=== PATIENT | female | born 1930 | race Caucasian/White ===

== ENCOUNTER → 2016-12-07 | Outpatient (CLI) | payer OTHER, MEDICARE ==
[~2016-12-07] MED LIST: AMLO5TAB2 PO; EFFSR75 PO; FURO-85 PO; PRLSR20 PO; TRAM-10 PO; VENL75CA73 PO
[2016-12-07 06:43] LABS: MANUAL MICROSCOPIC REQUIRED? NO; REVIEW REQ? NO; URINE APPEARANCE TURBID (CLEAR); URINE BILIRUBIN NEG (NEG); URINE COLOR YELLOW; URINE NITRITE NEG (NEG); URINE SPECIFIC GRAVITY 1.014 (1.000-1.030); UROBILINOGEN NEG (NEG); ZZURINE CULT IF INDIC CATH YES
== END ==
LOC: C.LABUPNIT 06:43
PROVIDERS: ATTEND Family Medicine
DX: R41.0 Disorientation, unspecified (principal)

== ENCOUNTER → 2016-12-11 | Outpatient (CLI) | payer OTHER, MEDICARE ==
[2016-12-11 09:15] LABS: BLOOD UREA NITROGEN 12 mg/dl (7-18); BUN/CREATININE RATIO 15.7 (10-20); CALCIUM 8.9 mg/dl (8.5-10.1); CARBON DIOXIDE 25 mmol/L (21-32); CHLORIDE 105 mmol/L (98-107); CREATININE 0.77 mg/dl (0.60-1.20); GLUCOSE 75 mg/dl (70-99); POTASSIUM 4.4 mmol/L (3.5-5.1); SODIUM 139 mmol/L (136-145)
[2016-12-11 09:25] LABS: THYROID STIMULATING HORMONE 0.378 uIu/ml (0.300-4.500)
--- NOTE | 2017-01-06 14:12 | CODING QUERY MEDICAL NECESSITY ---
SUPPORTING DIAGNOSIS NEEDED A supporting diagnosis is required for the test/procedure performed on this patient in order for us to be reimbursed by the patient's insurance. Please provide a supporting diagnosis for the following test/procedure listed below next to the test name along with your signature. *If there is no additional diagnosis for this patient that would support the following test/procedure please document that below next to the test/procedure. Test(s)/Procedure(s) that require a supporting diagnosis: * VITAMIN B-12 LEVEL DIAGNOSIS: * DOS: 12/11/16 Provider Signature: Date: Thank you Polly Jenkins [facility] Information Management Once completed, please kindly fax back to [phone] For questions please call [phone]
== END ==
LOC: C.LABUPNIT 08:49
PROVIDERS: ATTEND Family Medicine
DX: M62.81 Muscle weakness (generalized) (principal); D64.9 Anemia, unspecified; I10 Essential (primary) hypertension; E53.8 Deficiency of other specified B group vitamins

== ENCOUNTER → 2016-12-22 | Outpatient (CLI) | payer OTHER, MEDICARE ==
[2016-12-22 02:44] LABS: URINE APPEARANCE CLEAR (CLEAR); URINE BILIRUBIN NEG (NEG); URINE COLOR YELLOW; URINE EPITHELIAL CELL AUTO 0-5 /lpf (0-5); URINE NITRITE NEG (NEG); URINE SPECIFIC GRAVITY 1.001 (1.000-1.030); UROBILINOGEN NEG (NEG)
[2016-12-22 02:55] LABS: MANUAL MICROSCOPIC REQUIRED? NO; REVIEW REQ? NO
== END ==
LOC: C.LABUPNIT 12:07
PROVIDERS: ATTEND Family Medicine
DX: N39.0 Urinary tract infection, site not specified (principal)

== ENCOUNTER → 2016-12-23 | Outpatient (CLI) | payer OTHER, MEDICARE ==
[2016-12-23 09:35] LABS: BASO % 0.6 %; BASO ABS # 0.03 K/uL (0-0.2); COMPLETE YES; EOS % 0.6 %; IG% 0.4 %; LYMPH ABS # 0.92 K/uL (1.2-3.4); MEAN CELL VOLUME 90.9 fL (80-100); MEAN CORPUSCULAR HEMOGLOBIN 30.1 pg (25-34); MEAN CORPUSCULAR HGB CONC 33.1 g/dl (32-36); MONO % 10.8 %; NEUT % 68.6 %; PLATELET COUNT 166 K/uL (130-400); RED BLOOD COUNT 3.52 M/uL (4.2-5.4); WHITE BLOOD COUNT 4.83 K/uL (4.8-10.8)
[2016-12-23 11:25] LABS: ALT/SGPT 13 U/L (12-78); AST/SGOT 13 U/L (15-37); BLOOD UREA NITROGEN 10 mg/dl (7-18); BUN/CREATININE RATIO 16.4 (10-20); CARBON DIOXIDE 28 mmol/L (21-32); CHLORIDE 102 mmol/L (98-107); CREATININE 0.62 mg/dl (0.60-1.20); GLUCOSE 77 mg/dl (70-99); POTASSIUM 3.9 mmol/L (3.5-5.1); SODIUM 138 mmol/L (136-145)
[2016-12-23 11:26] LABS: ALB/GLOB RATIO 0.8 (0.9-2); ALKALINE PHOSPHATASE 80 U/L (45-117)
--- NOTE | 2016-12-27 10:26 | CODING QUERY NO DIAGNOSIS ---
TREATMENT RENDERED WITHOUT A DIAGNOSIS : 1930 To promote full compliance with coding requirements relating to patient care, physician participation is requested in all cases of [place] man uncertainty. Please assist us with providing a diagnosis/symptom for the test(s) below: A diagnosis/symptom was not documented on your Order. A valid diagnosis/symptom is required to bill all insurances. Please remember that we are unable to code a diagnosis of rule out, probable, possible, questionable, or suspected. Tests that require a diagnosis: DOS: 12/23/16 * CHEMISTRY + LIVER SD DIAGNOSIS: * CBC WITH AUTO DIFFER DIAGNOSIS: * VITAMIN B12 DIAGNOSIS: Provider Signature: Date: Thank you Sona Rivera [facility] Information Management Once completed, please kindly fax back to [phone] For questions please call [phone]
--- NOTE | 2017-01-29 10:16 | CODING QUERY MEDICAL NECESSITY ---
SUPPORTING DIAGNOSIS NEEDED A supporting diagnosis is required for the test/procedure performed on this patient in order for us to be reimbursed by the patient's insurance. Please provide a supporting diagnosis for the following test/procedure listed below next to the test name along with your signature. *If there is no additional diagnosis for this patient that would support the following test/procedure please document that below next to the test/procedure. Test(s)/Procedure(s) that require a supporting diagnosis: * VITAMIN B-12 LEVEL DIAGNOSIS: * DOS: 12/23/16 Provider Signature: Date: Thank you Polly Jenkins [facility] Information Management Once completed, please kindly fax back to [phone] For questions please call [phone]
== END ==
LOC: C.LABUPNIT 09:06
PROVIDERS: ATTEND Family Medicine
DX: D64.9 Anemia, unspecified (principal); I10 Essential (primary) hypertension

== ENCOUNTER → 2017-02-02 | Outpatient (CLI) | payer OTHER, MEDICARE | LOC: C.LABUPNIT 15:30 | PROVIDERS: ATTEND Family Medicine | DX: J10.1 Influenza due to other identified influenza virus with other respiratory manifestations (principal) ==

== ENCOUNTER → 2017-02-11 | Outpatient (CLI) | payer OTHER, MEDICARE ==
[2017-02-11 10:02] LABS: BASO % 0.4 %; BASO ABS # 0.02 K/uL (0-0.2); COMPLETE YES; EOS % 1.7 %; HEMATOCRIT 32.6 % (37-47); IG% 0.4 %; LYMPH % 21.2 %; LYMPH ABS # 1.09 K/uL (1.2-3.4); MEAN CELL VOLUME 91.6 fL (80-100); MEAN CORPUSCULAR HEMOGLOBIN 30.6 pg (25-34); MEAN CORPUSCULAR HGB CONC 33.4 g/dl (32-36); MEAN PLATELET VOLUME 10.4 fL (7.4-10.4); MONO % 9.9 %; NEUT % 66.4 %; PLATELET COUNT 152 K/uL (130-400); RED BLOOD COUNT 3.56 M/uL (4.2-5.4); WHITE BLOOD COUNT 5.15 K/uL (4.8-10.8)
[2017-02-11 10:39] LABS: ALT/SGPT 11 U/L (12-78); AST/SGOT 11 U/L (15-37); BLOOD UREA NITROGEN 24 mg/dl (7-18); BUN/CREATININE RATIO 29.7 (10-20); CALCIUM 9.1 mg/dl (8.5-10.1); CARBON DIOXIDE 27 mmol/L (21-32); CHLORIDE 108 mmol/L (98-107); GLUCOSE 93 mg/dl (70-99); POTASSIUM 4.4 mmol/L (3.5-5.1); SODIUM 142 mmol/L (136-145)
[2017-02-11 10:41] LABS: ALB/GLOB RATIO 0.7 (0.9-2); ALKALINE PHOSPHATASE 74 U/L (45-117)
== END ==
LOC: C.LABUPNIT 09:45
PROVIDERS: ATTEND Family Medicine
DX: I10 Essential (primary) hypertension (principal); D64.9 Anemia, unspecified

== ENCOUNTER → 2017-04-14 | Outpatient (CLI) | payer OTHER, MEDICARE ==
[2017-04-14 10:09] LABS: HEMATOCRIT 32.1 % (37-47); MEAN CELL VOLUME 95.3 fL (80-100); MEAN CORPUSCULAR HEMOGLOBIN 30.9 pg (25-34); MEAN CORPUSCULAR HGB CONC 32.4 g/dl (32-36); MEAN PLATELET VOLUME 10.2 fL (7.4-10.4); PLATELET COUNT 139 K/uL (130-400); RED BLOOD COUNT 3.37 M/uL (4.2-5.4); WHITE BLOOD COUNT 4.45 K/uL (4.8-10.8)
== END ==
LOC: C.LABUPNIT 09:23
PROVIDERS: ATTEND Nurse Practitioner Family
DX: D64.9 Anemia, unspecified (principal)

== ENCOUNTER → 2017-07-10 | Outpatient (CLI) | payer OTHER, MEDICARE | END | disposition home or self-care (01) | LOC: C.LABUPNIT 08:50 | PROVIDERS: ATTEND Nurse Practitioner Family | DX: M81.0 Age-related osteoporosis without current pathological fracture (principal) ==

== ENCOUNTER → 2017-07-15 | Outpatient (CLI) | payer OTHER, MEDICARE ==
[2017-07-15 09:24] LABS: HEMATOCRIT 31.2 % (37-47); MEAN CORPUSCULAR HEMOGLOBIN 30.4 pg (25-34); MEAN CORPUSCULAR HGB CONC 32.4 g/dl (32-36); MEAN PLATELET VOLUME 10.1 fL (7.4-10.4); PLATELET COUNT 150 K/uL (130-400); RED BLOOD COUNT 3.32 M/uL (4.2-5.4); WHITE BLOOD COUNT 4.57 K/uL (4.8-10.8)
== END | disposition home or self-care (01) ==
LOC: C.LABUPNIT 08:48
PROVIDERS: ATTEND Nurse Practitioner Family
DX: I10 Essential (primary) hypertension (principal)

== ENCOUNTER → 2017-09-08 | Outpatient (CLI) | payer OTHER, MEDICARE ==
[2017-09-08 10:20] LABS: HEMATOCRIT 31.5 % (37-47); MEAN CORPUSCULAR HEMOGLOBIN 30.8 pg (25-34); MEAN CORPUSCULAR HGB CONC 32.1 g/dl (32-36); MEAN PLATELET VOLUME 9.9 fL (7.4-10.4); PLATELET COUNT 162 K/uL (130-400); RED BLOOD COUNT 3.28 M/uL (4.2-5.4); WHITE BLOOD COUNT 4.31 K/uL (4.8-10.8)
[2017-09-08 10:53] LABS: BLOOD UREA NITROGEN 18 mg/dl (7-18); BUN/CREATININE RATIO 29.5 (10-20); CALCIUM 9.2 mg/dl (8.5-10.1); CARBON DIOXIDE 27 mmol/L (21-32); CHLORIDE 105 mmol/L (98-107); CREATININE 0.61 mg/dl (0.60-1.20); GLUCOSE 79 mg/dl (70-99); POTASSIUM 4.5 mmol/L (3.5-5.1); SODIUM 141 mmol/L (136-145)
== END ==
LOC: C.LABUPNIT 09:14
PROVIDERS: ATTEND Nurse Practitioner Family
DX: D64.9 Anemia, unspecified (principal)

== ENCOUNTER → 2017-09-25 | Outpatient (CLI) | payer OTHER, MEDICARE | LOC: C.LABUPNIT 10:09 | PROVIDERS: ATTEND Nurse Practitioner Family | DX: R11.2 Nausea with vomiting, unspecified (principal) ==

== ENCOUNTER → 2017-09-26 | Outpatient (CLI) | payer OTHER, MEDICARE ==
[2017-09-27 15:32] LABS: URINE APPEARANCE TURBID (CLEAR); URINE BILIRUBIN NEG (NEG); URINE COLOR YELLOW; URINE EPITHELIAL CELL AUTO >30 /lpf (0-5); URINE NITRITE POS (NEG); URINE SPECIFIC GRAVITY 1.016 (1.000-1.030); UROBILINOGEN POS (NEG)
[2017-09-27 15:35] LABS: MANUAL MICROSCOPIC REQUIRED? NO; REVIEW REQ? YES
[2017-09-27 15:41] LABS: SULFASALICYLIC ACID POS (NEG)
== END ==
LOC: C.LABUPNIT 10:13
PROVIDERS: ATTEND Family Medicine
DX: N39.0 Urinary tract infection, site not specified (principal)

== ENCOUNTER → 2017-10-14 | Outpatient (CLI) | payer OTHER, MEDICARE ==
[2017-10-14 09:13] LABS: BASO % 0.3 %; BASO ABS # 0.02 K/uL (0-0.2); COMPLETE YES; EOS % 3.6 %; HEMATOCRIT 32.5 % (37-47); IG% 0.5 %; LYMPH % 19.8 %; LYMPH ABS # 1.14 K/uL (1.2-3.4); MEAN CELL VOLUME 93.1 fL (80-100); MEAN CORPUSCULAR HEMOGLOBIN 30.9 pg (25-34); MEAN CORPUSCULAR HGB CONC 33.2 g/dl (32-36); MONO % 13.4 %; NEUT % 62.4 %; PLATELET COUNT 160 K/uL (130-400); RED BLOOD COUNT 3.49 M/uL (4.2-5.4); WHITE BLOOD COUNT 5.76 K/uL (4.8-10.8)
== END ==
LOC: C.LABUPNIT 08:58
PROVIDERS: ATTEND Nurse Practitioner Family
DX: I10 Essential (primary) hypertension (principal)

== ENCOUNTER → 2017-10-17 | Outpatient (CLI) | payer OTHER, MEDICARE | LOC: C.LABUPNIT 11:30 | PROVIDERS: ATTEND Nurse Practitioner Family | DX: N39.0 Urinary tract infection, site not specified (principal) ==

== ENCOUNTER → 2017-11-10 | Outpatient (CLI) | payer OTHER, MEDICARE ==
[2017-11-10 09:06] LABS: HEMOGLOBIN 10.2 g/dL (12.0-16.0); MEAN CELL VOLUME 92.8 fL (80-100); MEAN CORPUSCULAR HEMOGLOBIN 29.6 pg (25-34); MEAN CORPUSCULAR HGB CONC 31.9 g/dl (32-36); MEAN PLATELET VOLUME 10.3 fL (7.4-10.4); PLATELET COUNT 164 K/uL (130-400); RED CELL DISTRIBUTION WIDTH CV 13.4 % (11.5-14.5); RED CELL DISTRIBUTION WIDTH SD 45.1 fL (36.4-46.3); WHITE BLOOD COUNT 4.57 K/uL (4.8-10.8)
[2017-11-10 09:23] LABS: ALBUMIN 2.5 gm/dl (3.4-5.0); ALT/SGPT 13 U/L (12-78); BLOOD UREA NITROGEN 16 mg/dl (7-18); CALCIUM 9.1 mg/dl (8.5-10.1); CARBON DIOXIDE 27 mmol/L (21-32); GLUCOSE 77 mg/dl (70-99); POTASSIUM 4.2 mmol/L (3.5-5.1); SODIUM 137 mmol/L (136-145)
[2017-11-10 09:34] LABS: ALKALINE PHOSPHATASE 85 U/L (45-117); AST/SGOT 15 U/L (15-37); TOTAL PROTEIN 5.8 gm/dl (6.4-8.2)
== END ==
LOC: C.LABUPNIT 07:49
PROVIDERS: ATTEND Nurse Practitioner Family
DX: D64.9 Anemia, unspecified (principal); I10 Essential (primary) hypertension

== ENCOUNTER → 2018-01-22 | Outpatient (CLI) | payer OTHER, MEDICARE ==
[2018-01-22 09:50] LABS: HEMATOCRIT 31.4 % (37-47); HEMOGLOBIN 10.4 g/dL (12.0-16.0); MEAN CELL VOLUME 93.5 fL (80-100); MEAN CORPUSCULAR HGB CONC 33.1 g/dl (32-36); MEAN PLATELET VOLUME 10.1 fL (7.4-10.4); PLATELET COUNT 137 K/uL (130-400); RED CELL DISTRIBUTION WIDTH CV 13.3 % (11.5-14.5); RED CELL DISTRIBUTION WIDTH SD 45.2 fL (36.4-46.3)
[2018-01-22 10:15] LABS: ALBUMIN 2.5 gm/dl (3.4-5.0); ALT/SGPT 11 U/L (12-78); BLOOD UREA NITROGEN 13 mg/dl (7-18); CALCIUM 8.6 mg/dl (8.5-10.1); CARBON DIOXIDE 27 mmol/L (21-32); GLUCOSE 77 mg/dl (70-99); POTASSIUM 3.7 mmol/L (3.5-5.1); SODIUM 138 mmol/L (136-145)
[2018-01-22 10:25] LABS: ALKALINE PHOSPHATASE 90 U/L (45-117); AST/SGOT 12 U/L (15-37); TOTAL PROTEIN 5.8 gm/dl (6.4-8.2)
[2018-01-22 12:09] LABS: HEMOGLOBIN A1C 4.9 % (4.5-5.6)
== END ==
LOC: C.LABUPBEA 09:17
PROVIDERS: ATTEND Nurse Practitioner Family
DX: Z00.00 Encounter for general adult medical examination without abnormal findings (principal); D64.9 Anemia, unspecified; M81.0 Age-related osteoporosis without current pathological fracture

== ENCOUNTER → 2018-02-02 | Outpatient (CLI) | payer OTHER, MEDICARE ==
[2018-02-02 09:36] LABS: HEMOGLOBIN A1C 4.9 % (4.5-5.6)
== END ==
LOC: C.LABUPBEA 08:33
PROVIDERS: ATTEND Nurse Practitioner Family
DX: H35.30 Unspecified macular degeneration (principal)

== ENCOUNTER → 2018-02-03 | Outpatient (CLI) | payer OTHER, MEDICARE ==
[2018-02-03 08:49] LABS: HEMATOCRIT 32.1 % (37-47); HEMOGLOBIN 10.7 g/dL (12.0-16.0)
== END ==
LOC: C.LABUPBEA 08:19
PROVIDERS: ATTEND Nurse Practitioner Family
DX: D64.9 Anemia, unspecified (principal)

== ENCOUNTER → 2018-02-09 | Outpatient (CLI) | payer OTHER, MEDICARE ==
[2018-02-09 10:01] LABS: BASO % 0.8 %; BASO ABS # 0.04 K/uL (0-0.2); EOS % 3.8 %; EOS ABS # 0.18 K/uL (0-0.5); HEMATOCRIT 32.9 % (37-47); HEMOGLOBIN 10.9 g/dL (12.0-16.0); LYMPH % 26.5 %; LYMPH ABS # 1.25 K/uL (1.2-3.4); MEAN CELL VOLUME 92.7 fL (80-100); MEAN CORPUSCULAR HEMOGLOBIN 30.7 pg (25-34); MEAN CORPUSCULAR HGB CONC 33.1 g/dl (32-36); MEAN PLATELET VOLUME 9.8 fL (7.4-10.4); MONO % 12.5 %; MONO ABS # 0.59 K/uL (0.11-0.59); NEUT % 56.4 %; NEUT ABS # 2.66 K/uL (1.4-6.5); PLATELET COUNT 180 K/uL (130-400); RED CELL DISTRIBUTION WIDTH CV 13.1 % (11.5-14.5); RED CELL DISTRIBUTION WIDTH SD 44.7 fL (36.4-46.3); WHITE BLOOD COUNT 4.72 K/uL (4.8-10.8)
[2018-02-09 10:21] LABS: ALBUMIN 2.9 gm/dl (3.4-5.0); ALT/SGPT 14 U/L (12-78); AST/SGOT 15 U/L (15-37); BLOOD UREA NITROGEN 11 mg/dl (7-18); CALCIUM 9.1 mg/dl (8.5-10.1); CARBON DIOXIDE 28 mmol/L (21-32); CREATININE 0.65 mg/dl (0.60-1.20); GLUCOSE 80 mg/dl (70-99); POTASSIUM 3.4 mmol/L (3.5-5.1); SODIUM 137 mmol/L (136-145)
[2018-02-09 10:24] LABS: ALKALINE PHOSPHATASE 94 U/L (45-117); TOTAL PROTEIN 6.2 gm/dl (6.4-8.2)
== END ==
LOC: C.LABUPBEA 09:00
PROVIDERS: ATTEND Nurse Practitioner Family
DX: G30.9 Alzheimer's disease, unspecified (principal)

== ENCOUNTER → 2018-03-05 | Outpatient (CLI) | payer OTHER, MEDICARE ==
[2018-03-05 09:43] LABS: HEMATOCRIT 31.3 % (37-47); HEMOGLOBIN 10.3 g/dL (12.0-16.0)
== END | disposition home or self-care (01) ==
LOC: C.LABUPBEA 09:02
PROVIDERS: ATTEND Nurse Practitioner Family
DX: D64.9 Anemia, unspecified (principal)

== ENCOUNTER → 2018-03-16 | Outpatient (CLI) | payer OTHER, MEDICARE | LOC: C.LABUPBEA 19:30 | PROVIDERS: ATTEND Nurse Practitioner Family | DX: G30.9 Alzheimer's disease, unspecified (principal) ==